=== PATIENT | male | born 1945 | race Two or more races ===

== ENCOUNTER 2020-02-19 08:42 | Day surgery (SDC) | payer OTHER | END 2020-02-19 21:49 | disposition home or self-care (01) | LOC: CIR.AMB 08:42 | PROVIDERS: ATTEND Colon & Rectal Surgery | DX: K62.0 Anal polyp (principal); Z20.828 Contact with and (suspected) exposure to other viral communicable diseases; K64.1 Second degree hemorrhoids ==